=== PATIENT | female | born 1975 | race American Indian/Alaskan Native ===

== ENCOUNTER 2018-05-13 18:28 | Emergency (ER) | payer SELFPAY ==
[2018-05-13 18:35] VITALS: BP 133/78
[2018-05-13] MEDS ORDERED: MOTRIN PO ONE (19:46)
[2018-05-13] MEDS ORDERED: AUGMENTIN 875 MG PO ONE (19:47)
--- NOTE | 2018-05-13 19:59 | Emergency Department Report ---
- General Chief complaint: Skin/Abscess/Foreign Body Stated complaint: INFECTION LEFT BREAST Time Seen by Provider: 05/13/18 19:14 Source: patient Mode of arrival: Ambulatory Limitations: No Limitations - History of Present Illness Initial comments: 2-year-old -[place] female presents to the emergency room for ruptured abscess of the left breast. Patient reports that this is been going on for about 2 weeks. Patient reports that it started off as a temporal like ingrown lesion and she had been scratching it. She's been placing warm compresses on it which she reports that the abscess got bigger and then it burst. Patient reports that she's been using ice and warm compresses to alleviate her pain. Patient reports her pain as a 7 out of 10 she has not taken any oral pain medication. Patient put she has no past medical history currently takes no medications on a daily basis and has no known drug allergies. Patient denies any fever or chills no nausea no vomiting. Patient reports that this painful when she lies on the breast. MD complaint: abscess/boil -: week(s) (2) Tetanus Up to Date: no Location: generalized Severity: severe Severity scale (0 -10): 7 Quality: burning, sharp Consistency: constant Worsens with: palpation, movement Associated symptoms: denies other symptoms Treatments Prior to Arrival: bandages, OTC topical medication - Related Data Previous Rx's Medication Instructions Recorded Last Taken Type Amoxicillin/K Clav Tab [Augmentin 1 each PO Q12HR #20 tablet 05/13/18 Unknown Rx 875MG TAB] Ibuprofen [Motrin 600 MG tab] 600 mg PO Q8H #30 tablet 05/13/18 Unknown Rx Allergies Allergy/AdvReac Type Severity Reaction Status Date / Time No Known Allergies Allergy Unverified 05/13/18 18:35 Abscess Boil HPI - HPI Chief Complaint: Skin/Abscess/Foreign Body Stated Complaint: INFECTION LEFT BREAST Time Seen by Provider: 05/13/18 19:14 Home Medications: Previous Rx's Medication Instructions Recorded Last Taken Type Amoxicillin/K Clav Tab [Augmentin 1 each PO Q12HR #20 tablet 05/13/18 Unknown Rx 875MG TAB] Ibuprofen [Motrin 600 MG tab] 600 mg PO Q8H #30 tablet 05/13/18 Unknown Rx Allergies/Adverse Reactions: Allergies Allergy/AdvReac Type Severity Reaction Status Date / Time No Known Allergies Allergy Unverified 05/13/18 18:35 ED Review of Systems ROS: Stated complaint: INFECTION LEFT BREAST Other details as noted in HPI Comment: All other systems reviewed and negative Skin: other (breast swelling and pain) ED Past Medical Hx - Past Medical History Previous Medical History?: No - Surgical History Additional Surgical History: partial hysterectomy-2006, - Social History Smoking Status: Current Every Day Smoker Substance Use Type: None - Medications Home Medications: Home Medications Medication Instructions Recorded Confirmed Last Taken Type Amoxicillin/K Clav Tab [Augmentin 1 each PO Q12HR #20 tablet 05/13/18 Unknown Rx 875MG TAB] Ibuprofen [Motrin 600 MG tab] 600 mg PO Q8H #30 tablet 05/13/18 Unknown Rx ED Physical Exam - General Limitations: No Limitations General appearance: alert, in no apparent distress - Head Head exam: Present: atraumatic, normocephalic - ENT ENT exam: Present: mucous membranes moist - Neurological Exam Neurological exam: Present: alert, oriented X3 - Psychiatric Psychiatric exam: Present: normal affect, normal mood - Expanded Skin Exam Expanded Type of lesion: Present: other (open wound) Distribution of rash: other (left breast) Description of rash: Present: tenderness, erythematous, swelling ED Course Vital Signs 05/13/18 18:32 Temperature 98.5 F Pulse Rate 80 Respiratory 18 Rate Blood Pressure 133/78 O2 Sat by Pulse 97 Oximetry ED Medical Decision Making - Medical Decision Making Patient has been evaluated by this provider fast track. Patient's given ibuprofen and Augmentin 200 fast track stay. Discussed patient I will place her on Augmentin 875 mg by mouth twice a day for 10 days. As well as ibuprofen 600 mg every 8 hours. Discussed the patient I will refer her to wound care clinic. Critical care attestation.: If time is entered above; I have spent that time in minutes in the direct care of this critically ill patient, excluding procedure time. ED Disposition Clinical Impression: Cellulitis of left breast Open wound of breast Qualifiers: Encounter type: initial encounter Laterality: left Qualified Code(s): S21.002A - Unspecified open wound of left breast, initial encounter Disposition: - TO HOME OR SELFCARE Is pt being admited?: No Does the pt Need Aspirin: No Condition: Stable Instructions: Cellulitis (ED) Additional Instructions: Please completed antibiotics and pain medication as needed. Please follow what was said the [facility] wound care clinic. They are located at [address] [place] [address] [address] [place] [address]. Prescriptions: Amoxicillin/K Clav Tab [Augmentin 875MG TAB] 1 each PO Q12HR #20 tablet Ibuprofen [Motrin 600 MG tab] 600 mg PO Q8H #30 tablet Referrals: PRIMARY CARE, [Primary Care Provider] - 3-5 Days [facility] ,Wound Clinic [Other] - 3-5 Days Forms: Work/School Release Form(ED)
== END 2018-05-13 20:30 | disposition home or self-care (01) ==
LOC: ED 18:28
DX: S21.002A Unspecified open wound of left breast, initial encounter (principal); N61.0 Mastitis without abscess; F17.200 Nicotine dependence, unspecified, uncomplicated; Z90.711 Acquired absence of uterus with remaining cervical stump; X58.XXXA Exposure to other specified factors, initial encounter; Y93.89 Activity, other specified; Y92.89 Other specified places as the place of occurrence of the external cause; Y99.8 Other external cause status
CPT/HCPCS: 99282